=== PATIENT | female | born 1985 ===

== ENCOUNTER 2019-11-09 05:46 | Inpatient (IN) | payer OTHER ==
[~2019-11-09] VITALS: Ht 163.8 cm; Wt 110.7 kg
[2019-11-09] VITALS (13 sets, daily range): BP systolic 91–138; BP diastolic 52–74
[2019-11-09] MEDS ORDERED: Vancomycin 1gm/D5W 275ml IVPB ONE ×2 (06:00)
[2019-11-09] MEDS ORDERED: Pantoprazole Inj IVP ONE (06:00)
[2019-11-09] MEDS ORDERED: Propofol 1,000mg/ 100ml btl IV ONE (07:00)
[2019-11-09] MEDS ORDERED: NKM (07:05)
[2019-11-09] MEDS ORDERED: fentaNYL 100 mcg/2 mL IV ONE ×2 (07:05→14:05)
[2019-11-09] MEDS ORDERED: Midazolam 2mg/2ml Inj ONE (07:05)
[2019-11-09] MEDS ORDERED: Pantoprazole Inj ONE (07:21)
[2019-11-09] MEDS ORDERED: Rocuronium Bromide 50mg/5ml Inj IV ONE ×2 (07:21→09:33)
[2019-11-09] MEDS ORDERED: TransDerm Scop 1.5mg/72HR Patch TDERMAL ONE (07:21)
[2019-11-09] MEDS ORDERED: Succinylcholine 20mg/ml 10ml vial ONE (07:22)
[2019-11-09] MEDS ORDERED: Dexamethasone 4mg/ml vial ONE ×2 (07:25→14:00)
[2019-11-09] MEDS ORDERED: Lidocaine 1% MPF 10mg/ml 5ml ONE (07:25)
[2019-11-09] MEDS ORDERED: LR 1000ml ONE (07:30)
[2019-11-09] MEDS ORDERED: Sterile Water Irrig 1000ml IRRIG ONE (07:30)
[2019-11-09] MEDS ORDERED: NS Irrig 1000ml ONE (07:30)
[2019-11-09] MEDS ORDERED: Metoprolol Tartrate 5mg/5ml Inj ONE (07:30)
[2019-11-09] MEDS ORDERED: Bacitracin Oint 15gm Tube TOPIC ONE (07:39)
--- NOTE | 2019-11-09 07:39 | Pre-Procedure Note/Attestation ---
Pre-Procedure Note/Attestation Complete Prior to Procedure Planned Procedure: bilateral Procedure Narrative: posterior lumbar decompressive surgery with instrumented fusion at L4, L5 and S1 levels with arthrodesis and use of allograft, autograft and iliac crest graft and possible interbody fusion at the L5-S1 level Attestation I attest that I discussed the nature of the procedure; its benefits; risks and complications; and alternatives (and the risks and benefits of such alternatives ), prior to the procedure, with the patient (or the patient's legal business office representative). I attest that, if there was a reasonable possibility of needing a blood transfusion, the patient (or the patient's legal business office representative) was given the [place] Department of Health Services standardized written summary, pursuant to the Alejandro Shahid Blood Safety Act ([place] Health and Safety Code # 1645, as amended). I attest that I re-evaluated the patient just prior to the surgery and that there has been no change in the patient's H&P, except as documented below: Antonino Whaley MD Nov 09, 2019 07:39
[2019-11-09] MEDS ORDERED: Heparin 1000 units/ml 1ml Vial ONE (07:40)
[2019-11-09] MEDS ORDERED: Bacitracin 50000 Units Vial ONE ×2 (07:40→14:15)
[2019-11-09] MEDS ORDERED: Bupivacaine w/Epi 0.5% 30ml Vial INJ ONE ×2 (07:40→08:53)
[2019-11-09] MEDS ORDERED: Gelfoam Size TOPIC ONE (07:40)
[2019-11-09] MEDS ORDERED: Thrombin 5000 units TOPIC ONE ×2 (07:40→10:42)
[2019-11-09] MEDS ORDERED: Heparin 5000 units/ml inj ONE (08:16)
[2019-11-09] MEDS ORDERED: Tranexamic Acid 1,000 MG in NS 65 ML IV ONE (08:30)
[2019-11-09] MEDS ORDERED: Tranexamic Acid 100 ML IVPB SCH (08:45)
[2019-11-09] MEDS ORDERED: Acetaminophen (Non formulary) 100 ML IV ONE (09:30)
--- NOTE | 2019-11-09 09:37 | Anethesia Preoperative Eval ---
Anesthesia Pre-op PMH/ROS General Date of Evaluation: Nov 09, 2019 Time of Evaluation: 07:20 Anesthesiologist: Leia ASA Score: ASA 2 Mallampati Score Class I : Soft palate, uvula, fauces, pillars visible Class II: Soft palate, uvula, fauces visible Class III: Soft palate, base of uvula visible Class IV: Only hard plate visible Mallampati Classification: Class II Surgeon: Judd Diagnosis: Lumbar radiculopathy Surgical Procedure: L4 to S1 laminotomy with interbody fusion Anesthesia History: none Family History: no anesthesia problems Allergies: Coded Allergies: No Known Allergies (Unverified , 11/07/19) Medications: see eMAR Patient NPO?: Yes NPO Date: Nov 08, 2019 NPO Time: 2229 Past Medical History Cardiovascular: Reports: HTN - borderline; Denies: CAD, IA, valve dz, arrhythmia, other Pulmonary: Denies: asthma, COPD, [place], other Gastrointestinal/Genitourinary: Reports: GERD; Denies: CRI, ESRD, other Neurologic/Psychiatric: Reports: other - chronic pain; Denies: dementia, CVA, depression/anxiety, TIA Endocrine: Denies: DM, hypothyroidism, steroids, other HEENT: Denies: cataract (L), cataract (R), glaucoma, [place] (L), [place] (R), other Hematology/Immune: Reports: anemia - heavy mensrtrual periods, asymptomatic; Denies: DVT, bleeding disorder, other Musculoskeletal/Integumentary: Denies: OA, RA, DJD, DDD, edema, other Other: obesity PMH Narrative: as above PSxH Narrative: Appendectomy as a child Anesthesia Pre-op Phys. Exam Physician Exam Last Vital Signs Date Time Temp Pulse Resp B/P (MAP) Pulse Ox O2 Delivery O2 Flow Rate FiO2 11/09/19 07:06 Room Air 11/09/19 07:02 98.0 70 18 138/74 (95) 98 Constitutional: NAD Neurologic: CN 2-12 intact Cardiovascular: RRR, no M/R/G Respiratory: CTA Gastrointestinal: other - obesity Airway Exam Mallampati Score: Class II MO: full Neck: short ROM: full Teeth: intact Dentures: no upper, no lower Anesthesia Pre-op A/P Labs see chart Urine Test Test 11/09/19 06:05 Urine HCG, Qualitative Negative (NEGATIVE) Studies Pre-op Studies: EKG - NSR, CXR - WNL Risk Assessment & Plan Assessment: ASA 2 Plan: GA with Ett PONV prevention, neuromonitoring, Type and cross for 2 units of PRBC , cell saver intraoperatively Status Change Before Surgery: No Pre-Antibiotics Drug: Vancomycin 1gr. Gentamycin 80 mg. Given Within 1 Hr of Incision: Yes Time Given: 08:20 Gibson Dupree MD Nov 09, 2019 09:37
[2019-11-09] MEDS ORDERED: Morphine Sulfate 10mg/ml Inj ONE (09:42)
[2019-11-09] MEDS ORDERED: Sodium Chloride 10ml vial INJ ONE (09:43)
--- NOTE | 2019-11-09 09:57 | NUR ---
CASE MANAGEMENT:REVIEW 34 YR OLD FEMALE HERE FOR ELECTIVE SURGERY SI: LUMBAR RADICULOPATHY 98.0 70 18 138/74 98% ON RA IS: TO SURGERY FOR: POSTERIOR LUMBAR DECOMPRESSIVE SURGERY IVF@100/HR : CURRENTLY IN SURGERY INTERQUAL CRITERIA MET
[2019-11-09] MEDS ORDERED: TransDerm Scop 1.5mg/72HR Patch TDERMAL SCH (10:00)
[2019-11-09] MEDS ORDERED: Propofol 200mg/20ml IV ONE ×4 (10:26→16:13)
[2019-11-09] MEDS ORDERED: PCA Education Pamphlet MISC SCH (13:15)
[2019-11-09] MEDS ORDERED: LR 1000ml 1,000 ML IVLG SCH (13:16)
[2019-11-09] MEDS ORDERED: Meperidine 25mg/0.5ml Inj (FOR RIGORS ONLY) IV PRN (13:30)
[2019-11-09] MEDS ORDERED: Ketorolac 30mg Inj IV PRN (13:30)
[2019-11-09] MEDS ORDERED: Midazolam 2mg/2ml Inj IVP PRN (13:30)
[2019-11-09] MEDS ORDERED: DiphenhydrAMINE 50mg/ml Inj IVP PRN ×2 (13:30→14:00)
[2019-11-09] MEDS ORDERED: Metoclopramide 10mg/2ml Inj IVP PRN (13:30)
[2019-11-09] MEDS ORDERED: Hydromorphone 0.5mg/0.5ml inj IVP PRN (13:30)
[2019-11-09] MEDS ORDERED: Rate Change PCA 1 Each MISC PRN (14:00)
[2019-11-09] MEDS ORDERED: Naloxone 0.4mg/ml Inj IVP PRN (14:00)
[2019-11-09] MEDS ORDERED: Tranexamic Acid 100 ML IVPB ONE (15:15)
[2019-11-09] MEDS ORDERED: Tranexamic Acid 1,000 MG in NS 55 ML IVPB ONE (15:15)
--- NOTE | 2019-11-09 17:06 | Immediate Post-Op Evaluation ---
Immediate Post-Op Evalulation Immediate Post-Op Evalulation Procedure: L4 to S1 laminotomy with decompression and interbody fusion Date of Evaluation: Nov 09, 2019 Time of Evaluation: 17:05 IV Fluids: 2000 Blood Products: 1 unit PRBC Estimated Blood Loss: 400 Urinary Output: 1000 Blood Pressure Systolic: 112 Blood Pressure Diastolic: 65 Pulse Rate: 78 Respiratory Rate: 20 O2 Sat by Pulse Oximetry: 99 Temperature (Fahrenheit): 98.4 Pain Score (1-10): 1 Nausea: No Vomiting: No Complications none Patient Status: reacts, patent, extubated, none Hydration Status: adequate Gibson Dupree MD Nov 09, 2019 17:06
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
[2019-11-09] MEDS ORDERED: Milk of Magnesia 30ml Ud ORAL PRN (17:15)
[2019-11-09] MEDS ORDERED: traMADol 50mg tab ORAL PRN (17:15)
[2019-11-09] MEDS ORDERED: HYDROcodone/Acetamin 7.5/325 tab ORAL PRN (17:15)
--- NOTE | 2019-11-09 17:33 | General Progress Note ---
Progress Note Progress Note Neurosurgery post-op Note S/ Comfortable Improved sensation in the right leg. No leg pain O/ Last 24 Hour Vital Signs Date Time Temp Pulse Resp B/P (MAP) Pulse Ox O2 Delivery O2 Flow Rate FiO2 11/09/19 07:06 Room Air 11/09/19 07:02 98.0 70 18 138/74 (95) 98 Alert and oriented Moves all extremities well Dressing is dry Improved sensation in the right leg and foot. Laboratory Tests Test 11/09/19 06:05 Urine HCG, Qualitative Negative (NEGATIVE) doing well To floor after clearance by PACU Family are updated Antonino Whaley MD Nov 09, 2019 17:33
[2019-11-09 17:42] LABS: HEMATOCRIT 33.9 % (37.0-47.0); HEMOGLOBIN 10.9 G/DL (12.0-16.0); MEAN CORPUSCULAR VOLUME 79 FL (80-99); PLATELET COUNT 376 K/UL (150-450); RED BLOOD COUNT 4.29 M/UL (4.20-5.40); RED CELL DISTRIBUTION WIDTH 13.8 % (11.6-14.8); WHITE BLOOD COUNT 14.6 K/UL (4.8-10.8)
[2019-11-09] MEDS: PCA HYDROmorphone 1mg/ml 30 ML IV PRN ×2 (18:03→19:39)
--- NOTE | 2019-11-09 18:45 | NUR ---
NURSE NOTES: PACU, RN contacted Dr. Bharat Dupree regarding elevated temperature of 100.4 prior to discharge from PACU. Instructed to obtain x2 extra temperature readings when patient arrives on the post-operative floor. PACU, RN instructed floor nurse in report. Floor nurse, Ritu Valdez acknowledged understanding of instruction. Patient is in no apparent distress, non-diaphoretic, not tachycardic at time of temperature reading. Dorsal and plantar flexion intact bilaterally against resistance and able to move all 5 toes on bilateral feet on command. No complaint of numbness and patient states she can feel sensation with tactile stimulation.
[2019-11-09] MEDS ORDERED: PCA shift volume MISC SCH (19:00)
--- NOTE | 2019-11-09 20:05 | NUR ---
HAND-OFF: Thomas RN Report given to .Pt arrived to 4 minutes to 7:00 pm. Breathing by NC on 3 liters ,. Family at bedside. Bandage clean and intact, ice pack to back. Able to move all digits to feet, states sensation in her feet feel heavy. Oncoming nurse in room during hand off from PACU. SYSTEMS AUDITOR in reach. Family at bedside
--- NOTE | 2019-11-09 20:07 | NUR ---
NURSE NOTES: Received report from Bree KELLOGG. Rounding is done with outgoing nurse. patient c/o pain 12/01 and provided ice pack. No SOB noted with NC ON 3ml/min. Family at bedside. bandage is clean and intact. Patient is able to move all digits to feet and states having sensation. Bed is at lowest level and call light is within reach. Will continue to monitor.
--- NOTE | 2019-11-09 20:55 | NUR ---
NURSE NOTES: Notified to Dr. Bourne regarding patient's location and no orders given
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
[2019-11-09] MEDS: Vancomycin 1 GM in D5W 275 ML IVPB SCH (21:55)
[2019-11-09] MEDS: NS w/KCl 20mEq 1000ml 1,000 ML IV SCH (21:56)
--- NOTE | 2019-11-09 22:21 | 48 Hour Post Anesthesia Eval ---
Post Anesthesia Evaluation Procedure: L4 to S1 laminotomy with decompression and interbody fusion Date of Evaluation: Nov 09, 2019 Time of Evaluation: 21:04 Blood Pressure Systolic: 126 0: 69 Pulse Rate: 85 Respiratory Rate: 18 Temperature (Fahrenheit): 100.4 O2 Sat by Pulse Oximetry: 99 Airway: patent Nausea: No Vomiting: No Pain Intensity: 3 Hydration Status: adequate Cardiopulmonary Status: Stable Mental Status/LOC: patient returned to baseline Follow-up Care/Observations: 0 Post-Anesthesia Complications: 0 Follow-up care needed: N/A Devon Matson MD Nov 09, 2019 22:21
[2019-11-10] VITALS: BP_SYST 119; BP_SYST 133; BP_DIAS 52; BP_DIAS 66
[2019-11-10 04:00] VITALS: BP 115/56
[2019-11-10 05:58] LABS: BASOPHILS % (AUTO) 0.1 % (0.0-2.0); HEMATOCRIT 27.7 % (37.0-47.0); HEMOGLOBIN 9.1 G/DL (12.0-16.0); LYMPHOCYTES % (AUTO) 12.4 % (20.0-45.0); MEAN CORPUSCULAR VOLUME 80 FL (80-99); MONOCYTES % (AUTO) 5.5 % (1.0-10.0); NEUTROPHILS % (AUTO) 81.9 % (45.0-75.0); PLATELET COUNT 319 K/UL (150-450); RED BLOOD COUNT 3.48 M/UL (4.20-5.40); RED CELL DISTRIBUTION WIDTH 13.9 % (11.6-14.8); WHITE BLOOD COUNT 12.3 K/UL (4.8-10.8)
[2019-11-10 06:22] LABS: ANION GAP 7 mmol/L (5-15); BLOOD UREA NITROGEN 10 mg/dL (7-18); CALCIUM 8.1 MG/DL (8.5-10.1); CARBON DIOXIDE 25 MMOL/L (21-32); CHLORIDE 107 MMOL/L (98-107); CREATININE 0.6 MG/DL (0.55-1.30); POTASSIUM 4.1 MMOL/L (3.5-5.1); SODIUM 139 MMOL/L (136-145)
[2019-11-10 06:35] VITALS: BP 115/56
--- NOTE | 2019-11-10 06:35 | NUR ---
NURSE NOTES: DIRECTOR REGULATORY AFFAIRS discontinued per MD ORDER.
[2019-11-10] MEDS: NS w/KCl 20mEq 1000ml 1,000 ML IV SCH ×2 (07:00→17:37)
--- NOTE | 2019-11-10 07:30 | NUR ---
HAND-OFF: Report given to BESS Chaney. Pt in stable condition.
--- NOTE | 2019-11-10 07:46 | NUR ---
NURSE NOTES: Current plan of care to include physical therapy . Follow up required for back brace, pt to get out of bed with back brace. Denies pain at this time
[2019-11-10 08:00] VITALS: BP 117/61
--- NOTE | 2019-11-10 09:08 | NUR ---
NURSE NOTES: Dr Whaley called for an update on pt informed him that pt is complaining of heavy sensation to right leg. Pt is able to lift leg, 4/5. Give 325 mg of iron po with meal and orange juice for absorption
--- NOTE | 2019-11-10 09:25 | NUR ---
CASE MANAGEMENT:REVIEW 11/10/19 SI: POD #1 S/P L5 HEMILAMINECTOMY 98.1 60 18 117/61 99% ON RA WBC+12.3 H/H-9.1/27.7 IS: IV VANCOMYCIN Q12 IVF+KCL@100/HR : MED/SURG [facility]
[2019-11-10] MEDS: Cyclobenzaprine 10mg Tab ORAL PRN ×2 (09:30→17:38)
[2019-11-10] MEDS: Docusate Sod/Senna tab ORAL SCH ×2 (09:30→17:37)
[2019-11-10] MEDS: Docusate 100mg cap ORAL SCH ×2 (09:30→17:38)
[2019-11-10] MEDS: HYDROcodone/Acetamin 7.5/325 tab ORAL PRN ×2 (09:31→14:02)
[2019-11-10] MEDS: Vancomycin 1 GM in D5W 275 ML IVPB SCH (09:32)
--- NOTE | 2019-11-10 09:32 | NUR ---
DISCHARGE PLANNING FAXED BACK BRACE [facility] T: [phone] AWAIT RESPONSE
--- NOTE | 2019-11-10 10:45 | NUR ---
PT EVALUATION NOTE Patient seen for initial evaluation. Patient presents with generalized weakness and pain s/p lumbar surgery. Patient educated in back precautions and proper log roll technique for in/OOB. Patient requires min assist for bed mobility and transfers with FWW. Gait deferred due to lumbar brace not available. Patient will benefit from skilled inpatient PT intervention to address strength, balance and safety for improved functional mobility. Anticipate discharge home once medically cleared by MD. Recommend FWW and elevated toilet seat for home. Addendum: 11/10/19 at 1234 by JAMIE BRANCH PT Amended: Links added.
[2019-11-10] MEDS: HYDROmorphone 1mg/ml Carpuject IVP PRN ×2 (10:50→21:33)
[2019-11-10 12:00] VITALS: BP 113/61
--- NOTE | 2019-11-10 12:34 | Diagnostic Imaging Report ---
Indications: Postoperative back pain Technique: Spiral acquisitions obtained through the lumbar spine. Multiplanar reconstructions were generated. No IV contrast utilized. Total dose length product 1446 mGycm. CTDIvol(s) 40 mGy. Dose reduction achieved using automated exposure control Comparison: none Findings: There is grade 3 L5 on S1 spondylolisthesis. This results in severe degenerative change of the L5-S1 disc as well as extensive degenerative remodeling of L5 and S1. There is absence of both inferior L5 facets as well as the bilateral L5 laminae. The L5 spinous process remains intact. There are bilateral laminotomy defects of L4. Surgical fusion hardware is seen, with pedicle screws entering the bilateral L4 pedicles. The left screw protrudes minimally outside the cortex of the L4 vertebral body. This screws otherwise appear well aligned. These are connected by posterior fusion rods with screws entering the bilateral S1 segment. The S1 screws appear well aligned, completely intraosseous. Gas bubbles which are presumably from the surgical exposure are seen within the sacral and lumbar spinal canal, surrounding the right psoas muscle, and within the posterior paraspinous soft tissues. No definite evidence of epidural abscess or hematoma, although evaluation for such is limited given the presence of streak artifact from the hardware attenuation material within the deep subcutaneous fat posterior to the lumbar spine may reflect a small amount of postoperative hematoma. There is what appears to be some bone graft material adjacent to the L4 and L5 posterior elements. The remaining bony alignment is normal. Vertebral body heights are preserved. The remaining disc spaces are preserved. The facet joint spaces are preserved. No acute fractures. No dislocations. No significant disc bulge or protrusion, spinal stenosis, or neural foraminal stenosis. Impression: Postsurgical changes, as described. No definite unusual features or findings to explain stated clinical history of postsurgical back pain Severe L5 on S1 spondylolisthesis with secondary degenerative change The CT scanner at [facility] is accredited by the [employer] and the scans are performed using protocols designed to limit radiation exposure to as low as reasonably achievable to attain images of sufficient resolution adequate for diagnostic evaluation.
--- NOTE | 2019-11-10 13:45 | General Progress Note ---
Progress Note Progress Note Neurosurgery POD #1 S/ Incisional pain is under control. OOB. Rleg sensation has improved. Right leg felt heavy earlier O/ Last 24 Hour Vital Signs Date Time Temp Pulse Resp B/P (MAP) Pulse Ox O2 Delivery O2 Flow Rate FiO2 11/10/19 09:00 Nasal Cannula 3.0 11/10/19 08:00 98.1 60 18 117/61 (79) 99 11/10/19 06:35 58 18 96 11/10/19 04:00 98.1 58 18 115/56 (75) 96 11/10/19 04:00 58 18 96 11/10/19 00:00 98.7 71 18 119/52 (74) 95 11/10/19 00:00 77 18 97 11/09/19 22:21 85 18 99 11/09/19 21:00 Nasal Cannula 3.0 11/09/19 20:00 98.7 77 18 133/66 (88) 97 11/09/19 20:00 77 18 97 11/09/19 18:40 100.4 85 18 126/69 99 Nasal Cannula 3 11/09/19 18:33 100.4 11/09/19 18:30 18 11/09/19 18:30 82 18 130/67 99 Nasal Cannula 3 11/09/19 18:15 18 11/09/19 18:15 78 18 132/67 99 Nasal Cannula 3 11/09/19 18:00 18 11/09/19 18:00 80 18 127/69 99 Nasal Cannula 3 11/09/19 17:45 81 18 127/63 100 Nasal Cannula 2 11/09/19 17:30 83 14 126/64 100 Simple Mask 6 11/09/19 17:15 97 14 121/65 100 Simple Mask 6 11/09/19 17:10 80 13 119/62 100 Simple Mask 6 11/09/19 17:06 78 20 99 11/09/19 17:05 80 13 112/63 100 Simple Mask 6 11/09/19 17:00 79 18 91/57 100 Simple Mask 6 11/09/19 16:54 98.4 85 21 112/52 100 Simple Mask 6 Alert and oriented x4. Family at bedside. Lumbar incision is C/D/I Moves all extremities well Lower extremity 5/5 distally labs Laboratory Tests Test 11/09/19 17:11/10/19 05:10 White Blood Count 14.6 K/UL (4.8-10.8) H 12.3 K/UL (4.8-10.8) H Red Blood Count 4.29 M/UL (4.20-5.40) 3.48 M/UL (4.20-5.40) L Hemoglobin 10.9 G/DL (12.0-16.0) L 9.1 G/DL (12.0-16.0) L Hematocrit 33.9 % (37.0-47.0) L 27.7 % (37.0-47.0) L Mean Corpuscular Volume 79 FL (80-99) L 80 FL (80-99) Mean Corpuscular Hemoglobin 25.4 PG (27.0-31.0) L 26.2 PG (27.0-31.0) L Mean Corpuscular Hemoglobin Concent 32.1 G/DL (32.0-36.0) 32.9 G/DL (32.0-36.0) Red Cell Distribution Width 13.8 % (11.6-14.8) 13.9 % (11.6-14.8) Platelet Count 376 K/UL (150-450) 319 K/UL (150-450) Mean Platelet Volume 6.1 FL (6.5-10.1) L 7.0 FL (6.5-10.1) Neutrophils (%) (Auto) % (45.0-75.0) 81.9 % (45.0-75.0) H Lymphocytes (%) (Auto) % (20.0-45.0) 12.4 % (20.0-45.0) L Monocytes (%) (Auto) % (1.0-10.0) 5.5 % (1.0-10.0) Eosinophils (%) (Auto) % (0.0-3.0) 0.0 % (0.0-3.0) Basophils (%) (Auto) % (0.0-2.0) 0.1 % (0.0-2.0) Differential Total Cells Counted 100 Neutrophils % (Manual) 91 % (45-75) H Lymphocytes % (Manual) 6 % (20-45) L Monocytes % (Manual) 2 % (1-10) Eosinophils % (Manual) 0 % (0-3) Basophils % (Manual) 0 % (0-2) Band Neutrophils 1 % (0-8) Platelet Estimate Adequate Platelet Morphology Normal Microcytosis 1+ Sodium Level 139 MMOL/L (136-145) Potassium Level 4.1 MMOL/L (3.5-5.1) Chloride Level 107 MMOL/L (98-107) Carbon Dioxide Level 25 MMOL/L (21-32) Anion Gap 7 mmol/L (5-15) Blood Urea Nitrogen 10 mg/dL (7-18) Creatinine 0.6 MG/DL (0.55-1.30) Estimat Glomerular Filtration Rate > 60 mL/min (>60) Glucose Level 120 MG/DL (74-106) H Calcium Level 8.1 MG/DL (8.5-10.1) L Magnesium Level 1.9 MG/DL (1.8-2.4) Imaging: I reviewed th eCT of the lumbar spine perofmed earlier today. Study is significant for post surgical changes at L4 to S1 levels. There is interval osteotomy and laminectomies at L5. The L5 foramen is significantly improved. Anterolisthesis at L5 to S1 is unchanged. Pedicle screws and rods ar in good position without evidence of medial breach doing well D/c planning detailed instructions reviewed with pt, family and nursing. Antonino Whaley MD Nov 10, 2019 13:45
--- NOTE | 2019-11-10 15:01 | Diagnostic Imaging Report ---
INDICATION: Pain, intraoperative TECHNIQUE: Intraoperative imaging Fluoroscopy time: 130.4 seconds Total dose: 1.26 mGym2 Total number of images: 5 COMPARISON: None FINDINGS: Intraoperative imaging demonstrates surgical markers projected posterior to L4 and S1. Subsequent images demonstrate posterior fusion hardware placement between L4 and S1, bridging L5 IMPRESSION: Intraoperative imaging, as described
--- NOTE | 2019-11-10 19:47 | NUR ---
HAND-OFF: Report given to Thomas burciaga catheter d/c, total urie output 1800. Pt has not had a bm per pt she can not have a BM when she is not at home. Oncoming nurse made aware of pending discharge for tomorrow, Endorsed that pt needs elevated toilet seat and FWW. .
--- NOTE | 2019-11-10 19:50 | NUR ---
NURSE NOTES: Received report from Ritu KELLOGG. Rounding is done with outgoing nurse. patient c/o pain 05/31. No SOB noted at this time. Family at bedside. bandage is clean and intact. Patient is able to move all digits to feet and states having sensation. Bed is at lowest level and call light is within reach. Will continue to monitor.
[2019-11-10 20:00] VITALS: BP 111/49
[2019-11-11] VITALS: BP 108/52
[2019-11-11] MEDS: HYDROcodone/Acetamin 7.5/325 tab ORAL PRN ×2 (01:17→09:03)
[2019-11-11 04:00] VITALS: BP 119/55
--- NOTE | 2019-11-11 07:30 | NUR ---
HAND-OFF: Report given to Dwight KELLOGG. Patient in stable condition.
--- NOTE | 2019-11-11 07:35 | NUR ---
NURSE NOTES: Received pt from BESS Wang. pt was eating, no acute distress, no pain, mom was at bedside, D/C planning today. call light w/in reach.
[2019-11-11 08:00] VITALS: BP 132/60
[2019-11-11] MEDS: Docusate Sod/Senna tab ORAL SCH ×2 (09:02→17:50)
[2019-11-11] MEDS: Docusate 100mg cap ORAL SCH ×2 (09:02→17:50)
[2019-11-11 11:08] LABS: APPEARANCE,URINE CLEAR; BILIRUBIN, URINE NEGATIVE (NEGATIVE); COLOR,URINE PALE YELLOW; GLUCOSE, URINE (UA) NEGATIVE (NEGATIVE); KETONES,URINE NEGATIVE (NEGATIVE); LEUKOCYTE ESTERASE ,URINE NEGATIVE (NEGATIVE); NITRITE,URINE NEGATIVE (NEGATIVE); PH,URINE 5 (4.5-8.0); PROTEIN,URINE NEGATIVE (NEGATIVE); UROBILINOGEN,URINE NORMAL MG/DL (0.0-1.0)
--- NOTE | 2019-11-11 11:49 | Diagnostic Imaging Report ---
EXAM: XR Chest, 1 View CLINICAL HISTORY: POST-OP TECHNIQUE: Frontal view of the chest. COMPARISON: No relevant prior studies available. FINDINGS: Lungs: Unremarkable. The lungs appear clear. No focal consolidation. Pleural space: Unremarkable. The costophrenic angles are sharp. No visible pneumothorax. Heart: Unremarkable. No cardiomegaly. Mediastinum: Unremarkable. Bones/joints: Unremarkable. IMPRESSION: No acute findings.
[2019-11-11 12:00] VITALS: BP 122/55
--- NOTE | 2019-11-11 13:36 | Diagnostic Imaging Report ---
EXAM: US Duplex Bilateral Lower Extremity Veins CLINICAL HISTORY: PAIN TECHNIQUE: Real-time duplex ultrasound scan of the bilateral lower extremity veins integrating B-mode two-dimensional vascular structure, Doppler spectral analysis, color flow Doppler imaging and compression. COMPARISON: No relevant prior studies available. FINDINGS: Right deep veins: Unremarkable. No DVT in the right common femoral, femoral, proximal deep femoral or popliteal veins. The veins demonstrate normal color flow, are normally compressible, with normal phasic flow and/or augmentation response. Right superficial veins: Unremarkable. Left deep veins: Unremarkable. No DVT in the left common femoral, femoral, proximal deep femoral or popliteal veins. The veins demonstrate normal color flow, are normally compressible, with normal phasic flow and/or augmentation response. Left superficial veins: Unremarkable. Soft tissues: No popliteal cyst. IMPRESSION: Unremarkable bilateral lower extremity duplex venous ultrasound.
[2019-11-11 16:00] VITALS: BP 123/55
--- NOTE | 2019-11-11 19:48 | NUR ---
HAND-OFF: Report given to BESS Ibarra. pt was stable condition.
[2019-11-11 20:00] VITALS: BP 123/55
[2019-11-12] VITALS: BP 132/52
--- NOTE | 2019-11-12 02:35 | NUR ---
NURSES NOTE: Pt in bed, awake, A/OX4, communicative. Able to let needs be known. Denies pain currently. No outward s/s of distress noted. Breathing is even and unlabored on RA. Dressing, lower back is clean, intact. Wearing brace while out of bed/ambulating. Mother is at bed side. All due meds will be given. Bed at lowest level. Call light within reach. Pt will continue to be monitored.
[2019-11-12 04:00] VITALS: BP 117/61
[2019-11-12 08:00] VITALS: BP 117/58
--- NOTE | 2019-11-12 08:10 | NUR ---
HAND OFF: Report given to BESS Amor. Pt in stable condition.
--- NOTE | 2019-11-12 08:12 | NUR ---
NURSE NOTES: Received pt in bed, AAO x 4. Ambulatory with back brace. No c/o of distress/pain at this moment. IV on L hand 20g intact and patent, with saline lock. DME noted at the bedside. Mother at the bedside. Side rails x 2. Bed in the lowest and locked. Call light within reach. Will continue to monitor
[2019-11-12] MEDS: Docusate 100mg cap ORAL SCH (08:32)
[2019-11-12] MEDS: Docusate Sod/Senna tab ORAL SCH (08:32)
--- NOTE | 2019-11-12 11:51 | NUR ---
NURSE NOTES: Patient was discharged to home via private vehicle in stable condition accompanied by family members. Escorted pt down to first floor. ID and IV was removed. No s/s of infection on the removal site. Dressing was changed using island dressing and extra island dressing was given with instructions on how to change the dressing. Belongings including DME was accounted and given to patient. Prescription was given and discharge instruction to follow up with dr in one week, call dr or go to ER when pt has fever over 101, redness, or drainage.
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
== END 2019-11-12 12:43 | disposition home or self-care (01) | DRG 460 ==
LOC: SDSOVERFLO 05:46 → 3E 19:00
PROC: 0QB00ZZ Excision of Lumbar Vertebra, Open Approach (ICD-10-PCS; principal; 2019-11-09 07:30)
PROC: 0SG3071 Fusion of Lumbosacral Joint with Autologous Tissue Substitute, Posterior Approach, Posterior Column, Open Approach (ICD-10-PCS; principal; 2019-11-09 07:30)
PROC: 0SG0071 Fusion of Lumbar Vertebral Joint with Autologous Tissue Substitute, Posterior Approach, Posterior Column, Open Approach (ICD-10-PCS; principal; 2019-11-09 07:30)
PROC: 30233N1 Transfusion of Nonautologous Red Blood Cells into Peripheral Vein, Percutaneous Approach (ICD-10-PCS; principal; 2019-11-09 07:30)
PROC: 07DR0ZZ Extraction of Iliac Bone Marrow, Open Approach (ICD-10-PCS; principal; 2019-11-09 07:30)
DX: M43.16 Spondylolisthesis, lumbar region (principal); Z68.41 Body mass index [BMI] 40.0-44.9, adult; M43.06 Spondylolysis, lumbar region; M54.16 Radiculopathy, lumbar region; V89.2XXS Person injured in unspecified motor-vehicle accident, traffic, sequela; D50.0 Iron deficiency anemia secondary to blood loss (chronic); E66.3 Overweight
CPT/HCPCS: 36415; 71045; 72020; 72131; 76000; 80048; 81001; 81025; 83735; 85007; 85025; 86850; 86900; 86901; 86920; 87040; 87081; 87086; 93970; 94003; 94150; C9399; J1580; J2250; J2405; J7030